=== PATIENT | female | born 1965 | race Caucasian/White ===

== ENCOUNTER 2020-01-22 08:09 | Emergency (ER) | payer BC, OTHER ==
[2020-01-22 08:22] VITALS: BP 146/81
[2020-01-22 08:42] LABS: Influenza A Molecular Negative (Negative); Influenza B Molecular Negative (Negative)
--- NOTE | 2020-01-22 09:08 | UC ---
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 1 week ago no n/v/d - History of Current Complaint Chief Complaint: UCRespiratory Stated Complaint: THROAT,CONGESTION,CHEST PAIN,SOB Time Seen by Provider: 01/22/20 08:24 Hx Obtained From: Patient Onset/Duration: Gradual Onset, Lasting Days Timing: Constant Severity Initially: Mild Severity Currently: Moderate Pain Intensity: 5 Pain Scale Used: 0-10 Numeric Character: Cough: Productive Aggravating Factors: Deep Breaths Alleviating Factors: Nothing Associated Signs And Symptoms: Positive: Fever, Chills, Nasal Congestion - Allergies/Home Medications Allergies/Adverse Reactions: Allergies Allergy/AdvReac Type Severity Reaction Status Date / Time Penicillins Allergy GI Upset, Verified 01/22/20 08:19 Hives Home Medications: Home Medications Azithromycin TAB* [Zithromax TAB*] 250 mg PO DAILY #6 tab 01/22/20 [Rx] PMH/Surg Hx/FS Hx/Imm Hx Previously Healthy: Yes - Surgical History Surgical History: Yes Surgery Procedure, Year, and Place: Appendectomy - Family History Known Family History: Positive: Hypertension - Social History Alcohol Use: None Substance Use Type: None Smoking Status (MU): Heavy Every Day Tobacco Smoker Type: Cigarettes Amount Used/How Often: 1 PPD Length of Time of Smoking/Using Tobacco: Since Age 15 Cessation Counseling: Patient Advised to Stop Review of Systems All Other Systems Reviewed And Are Negative: Yes Constitutional: Positive: Fever, Chills, Fatigue Skin: Positive: Negative Eyes: Positive: Negative ENT: Positive: Nasal Discharge, Sinus Congestion Respiratory: Positive: Cough Cardiovascular: Positive: Chest Pain Gastrointestinal: Positive: Negative Genitourinary: Positive: Negative Motor: Positive: Negative Neurovascular: Positive: Negative Musculoskeletal: Positive: Myalgia Neurological/Mental Status: Positive: Headache Psychological: Positive: Negative Physical Exam Triage Information Reviewed: Yes Appearance: Well-Appearing, No Pain Distress, Well-Nourished Vital Signs: Initial Vital Signs Temp 97.9 F 01/22/20 08:13 Pulse 64 01/22/20 08:13 Resp 18 01/22/20 08:13 BP 146/81 01/22/20 08:13 Pulse Ox 99 01/22/20 08:13 Vital Signs Reviewed: Yes Eyes: Positive: Conjunctiva Clear ENT: Positive: Hearing grossly normal, Nasal congestion, Nasal drainage, Uvula midline. Negative: Tonsillar swelling, Tonsillar exudate, Trismus, Muffled voice, Hoarse voice Dental Exam: Normal Neck: Positive: Supple, Nontender, No Lymphadenopathy Respiratory: Positive: Lungs clear, Normal breath sounds, No respiratory distress Cardiovascular: Positive: RRR, No Murmur Abdomen Description: Positive: Nontender, No Organomegaly. Negative: CVA Tenderness (R), CVA Tenderness (L) Bowel Sounds: Positive: Present Musculoskeletal: Positive: ROM Intact, No Edema Neurological: Positive: Alert Psychological Exam: Normal Skin Exam: Normal Diagnostics - Laboratory Lab Results: influenza (-) - Radiology No standard instances Radiology Interpretation Completed By: Radiologist Summary of Radiographic Findings: CXR-NAD - EKG Cardiac Rate: NL Cardiac Rhythm: Sinus: Normal Ectopy: None ST Segment: Normal Respiratory Course/Dx - Differential Dx/Diagnosis Provider Diagnosis: Acute bronchitis, Smoker Discharge ED - Sign-Out/Discharge Documenting (check all that apply): Patient Departure All imaging exams completed and their final reports reviewed: Yes - Discharge Plan Condition: Stable Disposition: HOME Prescriptions: Azithromycin TAB* [Zithromax TAB*] 250 mg PO DAILY #6 tab Patient Education Materials: Acute Bronchitis (ED) Forms: *Work Release Referrals: [facility] [place] [facility] [place] [facility] [Outside] - If Needed Additional Instructions: rest fluids robitussin DM to ER for worsening symptoms recheck here in 4 days if not better - Billing Disposition and Condition Condition: STABLE Disposition: Home
== END 2020-01-22 09:45 | disposition home or self-care (01) ==
LOC: UCCORT 08:09
DX: J20.9 Acute bronchitis, unspecified (principal); R09.89 Other specified symptoms and signs involving the circulatory and respiratory systems; F17.210 Nicotine dependence, cigarettes, uncomplicated; Z88.0 Allergy status to penicillin
CPT/HCPCS: 71046; 93005; 99202; G0463